=== PATIENT | male | born 1980 | race Caucasian/White ===

== ENCOUNTER 2017-07-20 02:25 | Emergency (ER) | payer BC ==
--- NOTE | 2017-07-20 02:45 | Emergency Department Record ---
History of Present Illness - General Chief complaint: Extremity Problem Stated complaint: R HAND INJURY Time Seen by Provider: 07/20/17 02:39 Source: Patient Mode of Arrival: Ambulatory Limitations: No limitations - History of Present Illness Initial comments: The patient was working on his truck and accidentally banged his R hand on an object with a significant amount of force. He did sustain a very small abrasion to the proximal mid dorsal hand over the base of the 3rd MC bone. Now the pain is increasing. His Td is UTD. Complaint: Extremity pain Onset/Timin -: Hour(s) Location: Right, Hand Radiation: Proximal Severity scale (1-10): 8 Quality: Crushing, Dull Consistency: Getting worse Worsens with: Rest Associated Symptoms: Denies other symptoms - Related Data Home Medications Medication Instructions Recorded Confirmed Last Taken No Home Med [NO HOME MEDS] 07/20/17 07/20/17 Unknown Allergies Allergy/AdvReac Type Severity Reaction Status Date / Time bupropion HCl Allergy NAUSEA AND Verified 08/01/15 15:57 [From Wellbutrin] VOMITING Travel Screening - Travel/Exposure Within Last 30 Days Have you traveled within the last 30 days?: No - Travel Symptoms Symptom Screening: None Review of Systems Constitutional: Denies: Chills, Fever Past Medical History - SOCIAL HISTORY Smoking Status: Current every day smoker Alcohol Use: Occasional Drug Use: Heavy Drug Use Detail:: Marijuana - RESPIRATORY Hx Respiratory Disorders: No - CARDIOVASCULAR Hx Cardio Disorders: No - NEURO Hx Neuro Disorders: No - GI Hx GI Disorders: No - Hx Genitourinary Disorders: No - ENDOCRINE Hx Endocrine Disorders: No - MUSCULOSKELETAL Hx Musculoskeletal Disorders: Yes Hx Back Injury: Yes (fx) Comment:: multiple fractures of bones - PSYCH Hx Psych Problems: No - HEMATOLOGY/ONCOLOGY Hx Hematology/Oncology Disorders: No Family Medical History Any Significant Family History?: Yes Hx Cancer: Mother Hx HTN: Father Hx Resp Disorders: Mother Physical Exam - General General Appearance: Alert, Cooperative, No acute distress - Head Head exam: Atraumatic, Normocephalic - Eye Eye exam: Normal appearance, PERRL - Extremities Extremities exam: Full ROM (with pain on full finger flexion and extension.), Normal capillary refill, Tenderness (There is tenderness to the mid proximal dorsal hand.). negative: Normal inspection (There is very mild dorsal R hand swelling. ) Image of Hand: 1 - Area of tenderness. Course Vital Signs 07/20/17 02:30 Temperature 98.2 F Pulse Rate 66 Respiratory 20 Rate Blood Pressure 106/70 Pulse Ox 100 - Reevaluation(s) Reevaluation #1: I did explain to the patient that I do not see any fx or dislocation on the xrays. He is to wear a splint for 3 days and ice and elevate the hand and see his PCP if not better in 3 days. 07/20/17 03:15 Medical Decision Making - Data Complexity MDM Data: X-Ray Ordered and/or Reviewed - Radiology Data Radiology results: Report reviewed (R hand: Neg.) Disposition Disposition: Discharge Clinical Impression: Contusion of hand Qualifiers: Encounter type: initial encounter Laterality: right Qualified Code(s): S60.221A - Contusion of right hand, initial encounter Disposition: Home, Self-Care Condition: (2) Stable Instructions: Contusion in Adults (ED) Additional Instructions: Please wear the splint for 3 days and ice and elevate the hand when possible. Take OTC pain medicines if needed and see your PCP if not better by Sunday. Forms: Patient Portal Access Time of Disposition: 03:16 Quality - Quality Measures Quality Measures: N/A - Blood Pressure Screening View Details: Yes Does Patient Have Any of the Following: No Blood Pressure Classification: Normal BP Reading Systolic Measurement: 106 Diastolic Measurement: 70 Screening for High Blood Pressure: < Normal BP, F/U Not Required > [G8783]
[2017-07-20] MEDS ORDERED: HYDROCODONE/APAP 5/325MG TABLET PO ONE ×2 (03:14→03:17)
--- NOTE | 2017-07-20 13:00 | RADIOLOGY REPORT ---
EXAM: RIGHT HAND HISTORY: TRAUMA. TECHNIQUE: Three views of the right hand were obtained. Comparison: None. Encounter: Initial. FINDINGS: There is an old fifth metacarpal and fourth metacarpal fracture. Negative for acute fracture or dislocation. Linear punctate density near the IP joint of the thumb measuring approximately 2 mm may relate to small foreign body. The soft tissues are otherwise unremarkable. IMPRESSION: 1. OLD FOURTH AND FIFTH METACARPAL FRACTURES. NO ACUTE FRACTURE. 2. TINY 2 MM FOREIGN BODY NEAR THE THUMB. JOB [facility]BER: [id number] [facility]
== END 2017-07-20 03:45 | disposition home or self-care (01) ==
LOC: ER 02:25
DX: S60.221A Contusion of right hand, initial encounter (principal); W22.8XXA Striking against or struck by other objects, initial encounter
CPT/HCPCS: 99283

== ENCOUNTER 2017-12-24 17:26 | Emergency (ER) | payer BC ==
[2017-12-24] MEDS ORDERED: PROPARACAINE HCL OPTH 15ML BTL OPTH ONE ×2 (17:42→17:44)
[2017-12-24] MEDS ORDERED: EYE IRRIGATION SOLU. (SOD BOR/BORIC AC/H20/NACL) 118ML BTL OPTH ONE (17:48)
[2017-12-24] MEDS ORDERED: TOBRAMYCIN 0.3% OPTH DROP 5 ML BTL OPTH ONE (17:52)
--- NOTE | 2017-12-24 17:58 | Emergency Department Record ---
History of Present Illness - General Chief complaint: Eye Problem Stated complaint: LT EYE INJURY Time Seen by Provider: 12/24/17 17:52 Source: Patient Mode of Arrival: Ambulatory Limitations: No limitations Travel/Exposure to [place] Within 21 Days of Symptoms: No - History of Present Illness Initial comments: Pt at home working on car and break line "broke" and hit him directly to the left eye. Immediate pain. Unable to open his eye due to pain. No other injury. chief complaint: Eye injury Onset/Timin -: Minutes(s) Location: Left eye Place: Home If Injury: Direct trauma Eye Symptoms: Burning, Blurry vision Severity: Moderate Severity scale (1-10): 8 If Pain, Quality: Aching, Sharp Context: Trauma Treatments Prior to Arrival: Eyepatch, Other - Related Data Patient Tetanus UTD (within 5 yrs): Yes Previous Rx's Medication Instructions Recorded Hydrocodone/APAP 5/325Mg [[place] 1 each PO Q6H 3 Days #12 tab 12/24/17 5Mg/325Mg] Allergies Allergy/AdvReac Type Severity Reaction Status Date / Time bupropion HCl Allergy NAUSEA AND Verified 12/24/17 17:41 [From Wellbutrin] VOMITING hydromorphone [From Dilaudid] Allergy NEUROTOXICI Verified 12/24/17 17:41 TY meperidine [From Demerol] Allergy NEUROTOXICI Verified 12/24/17 17:41 TY pineapple Allergy HYPERSENSIT Verified 12/24/17 17:41 IVITY Travel Screening - Travel/Exposure Within Last 30 Days Have you traveled within the last 30 days?: No - Travel/Exposure Within Last Year Have you traveled outside the [place] in the last year?: No - Additonal Travel Details Have you been exposed to anyone with a communicable illness?: No - Travel Symptoms Symptom Screening: None Review of Systems Constitutional: Denies: Chills, Fever Eyes: Reports: Eye pain ENT: Denies: Congestion Respiratory: Denies: Cough, Dyspnea Cardiovascular: Denies: Chest pain Endocrine: Denies: Fatigue Gastrointestinal: Denies: Abdominal pain Psychiatric: Denies: Anxiety Past Medical History - SOCIAL HISTORY Smoking Status: Current every day smoker Alcohol Use: Occasional Drug Use: Occasional Drug Use Detail:: Marijuana - RESPIRATORY Hx Respiratory Disorders: No - CARDIOVASCULAR Hx Cardio Disorders: No - NEURO Hx Neuro Disorders: No - GI Hx GI Disorders: No - Hx Genitourinary Disorders: No - ENDOCRINE Hx Endocrine Disorders: No - MUSCULOSKELETAL Hx Musculoskeletal Disorders: Yes Hx Back Injury: Yes (fx) Comment:: multiple fractures of bones - PSYCH Hx Psych Problems: No - HEMATOLOGY/ONCOLOGY Hx Hematology/Oncology Disorders: No Family Medical History Any Significant Family History?: Yes Hx Cancer: Mother Hx HTN: Father Hx Resp Disorders: Mother Physical Exam - General General Appearance: Alert, Oriented x3, Cooperative, Moderate distress Limitations: No limitations - Head Head exam: Atraumatic - Eye Eye exam: PERRL, Conjunctival injection, EOMI. negative: Nystagmus, Periorbital swelling, Periorbital tenderness - ENT ENT exam: Normal exam Ear exam: Normal external inspection Nasal Exam: Normal inspection Mouth exam: Normal external inspection Teeth exam: Normal inspection Throat exam: Normal inspection - Neck Neck exam: Normal inspection - Respiratory Respiratory exam: Normal lung sounds bilaterally - Cardiovascular Cardiovascular Exam: Regular rate, Normal rhythm - GI/Abdominal GI/Abdominal exam: Soft. negative: Tenderness - Extremities Extremities exam: Normal inspection - Neurological Neurological exam: Alert, Normal gait, Oriented X3 Course Vital Signs 12/24/17 17:34 Temperature 98.1 F Pulse Rate 71 Respiratory 20 Rate Blood Pressure 130/86 Pulse Ox 99 - Reevaluation(s) Reevaluation #1: 12/24/17 17:56 EYE EXAM: pt with total relief of left eye pain with tetracaine. Able to read ID badge without issue. Pupils are round and equal. Slight injection of sclera. No hyphema. Fluro strip with uptake ever central cornea covering 50% of cornea. No evidence of ruptured globe. AB eye drops provided. Disposition Disposition: Discharge Clinical Impression: Corneal abrasion, left Disposition: Home, Self-Care Condition: (1) Good Instructions: Corneal Abrasion (ED) Prescriptions: Hydrocodone/APAP 5/325Mg [[place] 5Mg/325Mg] 1 each PO Q6H 3 Days #12 tab Forms: Patient Portal Access Quality - Quality Measures Quality Measures: N/A - Blood Pressure Screening Does Patient Have Any of the Following: No Blood Pressure Classification: Pre-Hypertensive BP Reading Systolic Measurement: 130 Diastolic Measurement: 86 Screening for High Blood Pressure: < Normal BP, F/U Not Required > [G8783]
[2017-12-24] MEDS ORDERED: GENTAMICIN SULFATE 0.3% OPTH 5 ML BTL OPTH ONE (18:17)
== END 2017-12-24 18:31 | disposition home or self-care (01) ==
LOC: ER 17:26
DX: S05.02XA Injury of conjunctiva and corneal abrasion without foreign body, left eye, initial encounter (principal); W22.8XXA Striking against or struck by other objects, initial encounter; F17.210 Nicotine dependence, cigarettes, uncomplicated; Y92.009 Unspecified place in unspecified non-institutional (private) residence as the place of occurrence of the external cause
CPT/HCPCS: 99283

== ENCOUNTER 2018-06-08 21:12 | Emergency (ER) | payer BC ==
[2018-06-08] MEDS ORDERED: PROPRANOLOL IV ONE (21:23)
[2018-06-08] MEDS ORDERED: [UNRECOGNIZED DRUG - OTHER] IV ONE (21:23)
--- NOTE | 2018-06-08 21:28 | Emergency Department Record ---
History of Present Illness - General Chief Complaint: Fall Injury Stated Complaint: DISLOCATED SHOULDER Time Seen by Provider: 06/08/18 21:23 Source: Patient Mode of Arrival: Ambulatory Limitations: No limitations - History of Present Illness Initial Comments: 38 yo male presents to ED following injury resulting in recurrent dislocation to the left shoulder. Patient reports numerous previous dislocations ( approximately 12 times), denies numbness, tingling, or weakness to the distal arm. Patient reports that he does not currently seen an orthopedist, has declined surgery previously. MD Complaint: Other Onset/Timin -: Minutes(s) Fall From: Standing When Fall Occurred: Just prior to arrival Fall Witnessed: No Place Fall Occurred: Home Loss of Consciousness: None Prolonged Down Time?: No Symptoms Prior to Fall: None Location - Extremities: Left: Shoulder Severity: Moderate Severity scale (1-10): 6 Quality: Aching - [place] Coma Scale Eye Response: (4) Open spontaneously Motor Response: (6) Obeys commands Verbal Response: (5) Oriented [place] Total: 15 - Related Data Home Medications Medication Instructions Recorded Confirmed Last Taken No Home Med [NO HOME MEDS] 06/08/18 06/08/18 Unknown Allergies Allergy/AdvReac Type Severity Reaction Status Date / Time bupropion HCl Allergy NAUSEA AND Verified 12/24/17 17:41 [From Wellbutrin] VOMITING hydromorphone [From Dilaudid] Allergy NEUROTOXICI Verified 12/24/17 17:41 TY meperidine [From Demerol] Allergy NEUROTOXICI Verified 12/24/17 17:41 TY pineapple Allergy HYPERSENSIT Verified 12/24/17 17:41 IVITY Travel Screening - Travel/Exposure Within Last 30 Days Have you traveled within the last 30 days?: No - Travel Symptoms Symptom Screening: None Review of Systems Constitutional: Denies: Chills, Fever, Malaise, Night sweats Eyes: Denies: Eye discharge, Eye pain ENT: Denies: Congestion, Ear pain, Epistaxis Respiratory: Denies: Cough, Dyspnea Cardiovascular: Denies: Chest pain, Dyspnea on exertion Endocrine: Denies: Fatigue, Heat or cold intolerance Gastrointestinal: Denies: Abdominal pain, Nausea, Vomiting Genitourinary: Denies: Incontinence, Retention Musculoskeletal: Reports: Arthralgia. Denies: Back pain, Gout, Joint swelling Skin: Denies: Bruising, Change in color Neurological: Denies: Abnormal gait, Confusion, Headache, Seizure Psychiatric: Denies: Anxiety Hematological/Lymphatic: Denies: Anemia, Blood Clots Past Medical History - SOCIAL HISTORY Smoking Status: Current every day smoker - RESPIRATORY Hx Respiratory Disorders: No - CARDIOVASCULAR Hx Cardio Disorders: No - NEURO Hx Neuro Disorders: No - GI Hx GI Disorders: No - Hx Genitourinary Disorders: No - ENDOCRINE Hx Endocrine Disorders: No - MUSCULOSKELETAL Hx Musculoskeletal Disorders: Yes Hx Back Injury: Yes (fx) Comment:: multiple fractures of bones - PSYCH Hx Psych Problems: No - HEMATOLOGY/ONCOLOGY Hx Hematology/Oncology Disorders: No Family Medical History Any Significant Family History?: Yes Hx Cancer: Mother Hx HTN: Father Hx Resp Disorders: Mother Physical Exam - General General Appearance: Alert, Oriented x3, Cooperative, Moderate distress Limitations: No limitations - Head Head exam: Atraumatic, Normocephalic, Normal inspection Head exam detail: negative: Abrasion, Contusion, Bello's sign, General tenderness, Hematoma, Laceration - Eye Eye exam: Normal appearance. negative: Conjunctival injection, Periorbital swelling, Periorbital tenderness, Scleral icterus - ENT Ear exam: negative: Auricular hematoma, Auricular trauma Nasal Exam: negative: Active bleeding, Discharge, Dried blood, Foreign body Mouth exam: negative: Drooling, Laceration, Muffled voice, Tongue elevation - Neck Neck exam: Normal inspection. negative: Meningismus, Tenderness - Respiratory Respiratory exam: Normal lung sounds bilaterally. negative: Rales, Respiratory distress, Rhonchi, Stridor - Cardiovascular Cardiovascular Exam: Regular rate, Normal rhythm, Normal heart sounds - GI/Abdominal GI/Abdominal exam: Soft. negative: Rebound, Rigid, Tenderness - Rectal Rectal exam: Deferred - exam: Deferred - Extremities Extremities exam: Tenderness, Other (Step-off to the left shoulder c/w anterior dislocation, axillary nerve intact.). negative: Calf tenderness, Pedal edema - Back Back exam: Denies: CVA tenderness (R), CVA tenderness (L) - Neurological Neurological exam: Alert, Normal gait, Oriented X3 - Psychiatric Psychiatric exam: Normal affect, Normal mood - Skin Skin exam: Normal color. negative: Abrasion Type of lesion: negative: abrasion Course Vital Signs 06/08/18 21:17 Temperature 98.1 F Pulse Rate [ 80 Pulse Ox Probe] Respiratory 20 Rate Blood Pressure 122/101 [Right Arm] Pulse Ox 100 - Reevaluation(s) Reevaluation #1: 06/08/18 21:59 Patient reported that he could not undergo pre-reduction radiographs due to discomfort, conscious sedation was initiated followed by reduction of the left proximal humerus. Left shoulder (post-reduction): Satisfactory reduction of the left shoulder No obvious [place] lesion present Will reassess following PO challenge for discharge home. Reevaluation #2: 06/08/18 22:11 Patient is alert, oriented, and tolerating PO. Patient appears stable for discharge at this time. Procedures - Orthopedic Joint Reduction Joint #1 Consent Obtained: Written consent Time Out Performed: Yes Side: Left Joint Reduction Location: Shoulder Shoulder Technique Used (if applicable): Traction/counter-traction Technique Used: Traction/counter-traction Post-Reduction Neuro Exam: Intact Post-Reduction Vascular Exam: Intact Post Reduction X-Ray Obtained: Yes Post Reduction X-Ray Results: Reduced Splint Applied: Yes Patient Tolerated Procedure: Good - Procedural Sedation Indications: fracture/dislocation redu ASA Class: II Mallampati Airway Score: 2 Preparation: pulse oximeter, supplemental O2 applied, suction/airway equipment at bedside, IV secured IV Propofol Dose (mgs): 150 Complications: none Patient Tolerated Procedure: Good Sedation Start Date: 06/08/18 Sedation Start Time: 21:39 Sedation End Date: 06/08/18 Sedation End Time: 21:46 Disposition Disposition: Discharge Clinical Impression: Shoulder dislocation Qualifiers: Encounter type: initial encounter Laterality: left Qualified Code(s): S43.005A - Unspecified dislocation of left shoulder joint, initial encounter Disposition: Home, Self-Care Condition: (2) Stable Instructions: Shoulder Dislocation (ED) Additional Instructions: Return to ED if your symptoms worsen or if you have any concerns. Follow-up with Dr. Shah in 5-7 days as directed. Referrals: ABIMAEL SHAH [DOCTOR OF OSTEOPATH] - [facility] Specialty Clinics [Provider Group] Forms: Patient Portal Access Time of Disposition: 21:55 Quality - Quality Measures Quality Measures: N/A - Blood Pressure Screening Does Patient Have Any of the Following: No Blood Pressure Classification: Hypertensive Reading Systolic Measurement: 122 Diastolic Measurement: 101 Screening for High Blood Pressure: < First Hypertensive BP, F/U Documented > [ G8950] First Hypertensive Follow-up Interventions: Referral to alternative/primary care provider.
[2018-06-08] MEDS ORDERED: 0.9 % SODIUM CHLORIDE 1000ML 1,000 ML IV SCH (21:30)
[2018-06-08] MEDS ORDERED: PROPOFOL 10 MG/ML VIAL IVP ONE (21:33)
[2018-06-08] MEDS ORDERED: ONDANSETRON HCL IV 4 MG/2 ML VIAL IVP ONE (21:33)
--- NOTE | 2018-06-12 09:50 | RADIOLOGY REPORT ---
EXAM: SHOULDER, LEFT HISTORY: PATIENT HAS A HISTORY OF FALL. PATIENT HAS PRIOR HISTORY OF DISLOCATIONS. TECHNIQUE: Three views of the left shoulder are provided. COMPARISON: Comparison x-ray of the left shoulder dated 06/25/2014 is provided. FINDINGS: No obvious fractures or dislocations of the left shoulder are noted. There is internal rotation of the left humeral head. There is questionable Hill- Sachs deformity of the posterior greater tuberosity. This finding, however, appears similar to the prior x-ray. No obvious glenoid process fracture is noted. IMPRESSION: THERE IS INTERNAL ROTATION OF THE LEFT HUMERAL HEAD, WHICH LIMITS EVALUATION. WITHIN THE LIMITS OF THE EXAMINATION, THERE IS NO OBVIOUS FRACTURES OR DISLOCATION OF THE LEFT SHOULDER. POSSIBLE CHRONIC DEFORMITY OF THE POSTERIOR GREATER TUBEROSITY SUGGESTS HILL-SACHS DEFORMITY. JOB [facility]BER: [id number] [facility]
== END 2018-06-08 22:51 | disposition home or self-care (01) ==
LOC: ER 21:12
DX: S43.015A Anterior dislocation of left humerus, initial encounter (principal); W01.0XXA Fall on same level from slipping, tripping and stumbling without subsequent striking against object, initial encounter; F17.210 Nicotine dependence, cigarettes, uncomplicated; Y92.008 Other place in unspecified non-institutional (private) residence as the place of occurrence of the external cause
CPT/HCPCS: 23650 ×2; 99284 ×2; 96374; 96375; 73030; J2405; J7030

== ENCOUNTER 2019-01-01 22:23 | Emergency (ER) | payer BC ==
[2019-01-01] MEDS ORDERED: IBUPROFEN 400 MG TABLET PO ONE (22:33)
--- NOTE | 2019-01-01 22:40 | Emergency Department Record ---
History of Present Illness - General Chief Complaint: Ankle/Foot Injury Stated Complaint: RT FOOT INJURY Time Seen by Provider: 01/01/19 22:33 Source: Patient Mode of Arrival: Ambulatory with crutches Limitations: No limitations - History of Present Illness Initial Comments: 38 yo male presents to ED for evaluation following injury to the right ankle wh ile jumping out of his pick-up truck approximately 45 minutes ago. Patient reports previous ORIF to the right ankle several years ago following fall from approximately 45 feet resulting in bilateral ankle/foot fractures and low-lumbar spine fractures. Patient denies other injury this evening, denies taking anything for pain prior to arrival but reports drinking alcohol prior to arrival. Patient's orthopedic surgeon is Dr. Quigley in [place]. Complaint: Ankle injury Onset/Timin -: Minutes(s) Type of Injury: Inversion Place: Street/outdoors Severity: Moderate Improves With: Nothing Worsens With: Weight bearing Context: Jumping - Related Data Previous Rx's Medication Instructions Recorded Hydrocodone/Acetaminophen [[place] 1 tab PO Q6H PRN #10 tab 01/01/19 5mg/325mg] Allergies Allergy/AdvReac Type Severity Reaction Status Date / Time bupropion HCl Allergy NAUSEA AND Verified 12/24/17 17:41 [From Wellbutrin] VOMITING hydromorphone [From Dilaudid] Allergy NEUROTOXICI Verified 12/24/17 17:41 TY meperidine [From Demerol] Allergy NEUROTOXICI Verified 12/24/17 17:41 TY pineapple Allergy HYPERSENSIT Verified 12/24/17 17:41 IVITY Review of Systems Constitutional: Denies: Chills, Fever, Malaise, Night sweats Eyes: Denies: Eye discharge, Eye pain ENT: Denies: Congestion, Ear pain, Epistaxis Respiratory: Denies: Cough, Dyspnea Cardiovascular: Denies: Chest pain, Dyspnea on exertion Endocrine: Denies: Fatigue, Heat or cold intolerance Gastrointestinal: Denies: Abdominal pain, Nausea, Vomiting Genitourinary: Denies: Incontinence, Retention Musculoskeletal: Reports: Arthralgia, Joint swelling. Denies: Back pain, Gout Skin: Denies: Bruising, Change in color Neurological: Denies: Confusion, Headache, Seizure Psychiatric: Denies: Anxiety Hematological/Lymphatic: Denies: Anemia, Blood Clots Past Medical History - SOCIAL HISTORY Smoking Status: Current every day smoker - RESPIRATORY Hx Respiratory Disorders: No - CARDIOVASCULAR Hx Cardio Disorders: No - NEURO Hx Neuro Disorders: No - GI Hx GI Disorders: No - Hx Genitourinary Disorders: No - ENDOCRINE Hx Endocrine Disorders: No - MUSCULOSKELETAL Hx Musculoskeletal Disorders: Yes Hx Back Injury: Yes (fx) Comment:: multiple fractures of bones - PSYCH Hx Psych Problems: No - HEMATOLOGY/ONCOLOGY Hx Hematology/Oncology Disorders: No Family Medical History Hx Cancer: Mother Hx HTN: Father Hx Resp Disorders: Mother Physical Exam - General General Appearance: Alert, Oriented x3, Cooperative, Mild distress Limitations: No limitations - Head Head exam: Atraumatic, Normocephalic, Normal inspection Head exam detail: negative: Abrasion, Contusion, Bello's sign, General tenderness, Hematoma, Laceration - Eye Eye exam: Normal appearance. negative: Conjunctival injection, Periorbital swelling, Periorbital tenderness, Scleral icterus - ENT Ear exam: negative: Auricular hematoma, Auricular trauma Nasal Exam: negative: Active bleeding, Discharge, Dried blood, Foreign body Mouth exam: negative: Drooling, Laceration, Tongue elevation - Neck Neck exam: Normal inspection. negative: Meningismus, Tenderness - Respiratory Respiratory exam: Normal lung sounds bilaterally. negative: Rales, Respiratory distress, Rhonchi, Stridor - Cardiovascular Cardiovascular Exam: Regular rate, Normal rhythm, Normal heart sounds Peripheral Pulses: 3+: Dorsalis Pedis (R) - GI/Abdominal GI/Abdominal exam: Soft. negative: Rebound, Rigid, Tenderness - Rectal Rectal exam: Deferred - exam: Deferred - Extremities Extremities exam: Joint swelling, Tenderness, Other (Moderate-severe STS lateral right ankle, no deformity is noted. Strong DPP, no pain with palpation of the foot. Achilles tendon in intact, and compartments of the lower extremity are soft on examination.). negative: Calf tenderness, Pedal edema - Back Back exam: Denies: CVA tenderness (R), CVA tenderness (L) - Neurological Neurological exam: Alert, Normal gait, Oriented X3 - Psychiatric Psychiatric exam: Normal affect, Normal mood - Skin Skin exam: Normal color. negative: Abrasion Type of lesion: negative: abrasion Course Vital Signs 01/01/19 22:30 Temperature 98.7 F Pulse Rate [ 73 Pulse Ox Probe] Respiratory 20 Rate Blood Pressure 131/80 [Left Arm] Pulse Ox 99 - Reevaluation(s) Reevaluation #1: 01/01/19 23:03 Right Foot Post-operative changes, nothing acute Right ankle: Probable avulsion fracture distal fibula laterally Marked STS laterally Patient was updated on his preliminary radiograph results pending radiology i nterpretation Recommended fracture boot/crutches as directed Patient declined stating "I have compression boot and walking stick at home". Will arrange for orthopedic follow-up with Dr. Estrada next week in the [facility] Speciality clinic. Disposition Disposition: Discharge Clinical Impression: Fracture of distal fibula Qualifiers: Encounter type: initial encounter Fracture type: closed Fracture morphology: other fracture Laterality: right Qualified Code(s): S82.831A - Other fracture of upper and lower end of right fibula, initial encounter for closed fracture Disposition: Home, Self-Care Condition: (2) Stable Instructions: Ankle Fracture (ED) Additional Instructions: Return to ED if your symptoms worsen or if you have any concerns. [place]/Ibuprofen as directed. Follow-up with Dr. Estrada in the [facility] Specialty Clinic 3-5 days as directed. Prescriptions: Hydrocodone/Acetaminophen [[place] 5mg/325mg] 1 tab PO Q6H PRN #10 tab PRN Reason: Pain - General Referrals: Rodney Estrada [DOCTOR OF OSTEOPATH] - [facility] Specialty Clinics [Provider Group] Forms: Patient Portal Access Time of Disposition: 23:08 Quality - Quality Measures Quality Measures: N/A - Blood Pressure Screening Does Patient Have Any of the Following: No Blood Pressure Classification: Pre-Hypertensive BP Reading Systolic Measurement: 131 Diastolic Measurement: 80 Screening for High Blood Pressure: < Pre-Hypertensive BP, F/U Documented > [G8950] Pre-Hypertensive Follow-up Interventions: Referral to alternative/primary care provider.
[2019-01-01] MEDS ORDERED: HYDROCODONE/APAP 5/325MG TABLET PO ONE (22:52)
--- NOTE | 2019-01-03 09:59 | RADIOLOGY REPORT ---
EXAM: RIGHT ANKLE, THREE VIEWS HISTORY: LATERAL ANKLE PAIN POST RECENT INJURY. TECHNIQUE: Three views of the right ankle were obtained. Comparison: Same day three views of the right foot. Encounter: Initial. FINDINGS: No remote prior examination available for comparison. There is normal bone mineralization. There is extensive plate and screw fixation of the talus. There is chronic appearing deformity of the medial corner of the talar dome. The ankle mortise is grossly symmetric. There are a couple small calcific densities projecting adjacent to the tip of the lateral malleolus associated with a large amount of soft tissue swelling. Avulsion fracture is not excluded. There are mild degenerative changes of the hindfoot. IMPRESSION: 1. EXTENSIVE POST SURGICAL CHANGES INVOLVING THE TALUS. 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 2. THERE ARE A COUPLE SMALL OSSIFIC DENSITIES NOTED ADJACENT TO THE TIP OF THE LATERAL MALLEOLUS ASSOCIATED WITH MARKED LATERAL SOFT TISSUE SWELLING. AVULSION FRACTURE CANNOT BE EXCLUDED. 3. MILD DEGENERATIVE CHANGES OF THE HINDFOOT. JOB NUMBER: [id number] [facility]
--- NOTE | 2019-01-03 10:04 | RADIOLOGY REPORT ---
EXAM: RIGHT FOOT, THREE VIEWS HISTORY: LATERAL ANKLE PAIN AND SWELLING POST RECENT INJURY. TECHNIQUE: Three views of the right foot were obtained. Comparison: Same day three views of the right ankle. Encounter: Initial. FINDINGS: There is normal bone mineralization. There is extensive plate and screw fixation of the talus. There is linear calcific density projecting near the dorsal margin of the talar neck. This is likely chronic. On the AP view there are a couple small calcific densities projecting distal to the tip of the lateral malleolus. There is associated moderate lateral soft tissue swelling at the level of the ankle. Avulsion fractures are not excluded. No other osseous evidence of fracture nor dislocation. Mild degenerative changes of the hindfoot. IMPRESSION: 1. EXTENSIVE POST SURGICAL CHANGE WITHIN THE TALUS. 2. SMALL OSSIFIC DENSITIES PROJECT DISTAL TO THE TIP OF THE LATERAL MALLEOLUS WITH ASSOCIATED LATERAL SOFT TISSUE SWELLING. AVULSION FRACTURE IS NOT EXCLUDED. 3. MILD DEGENERATIVE CHANGES OF THE HINDFOOT. JOB NUMBER: [id number] [facility]
== END 2019-01-01 23:14 | disposition home or self-care (01) ==
LOC: ER 22:23
DX: S82.831A Other fracture of upper and lower end of right fibula, initial encounter for closed fracture (principal); X50.0XXA Overexertion from strenuous movement or load, initial encounter; Y92.410 Unspecified street and highway as the place of occurrence of the external cause; F17.210 Nicotine dependence, cigarettes, uncomplicated
CPT/HCPCS: 99283; 99284